=== PATIENT | male | born 1960 | race Two or more races ===

== ENCOUNTER 2024-07-19 05:26 | Day surgery (SDC) | payer OTHER ==
[2024-07-11 13:11] VITALS: BP 130/85
[~2024-07-19] VITALS: Ht 182.9 cm; Wt 77.6 kg
[~2024-07-19 05:26] MED LIST: CRESTOR; SYNTHROID75 MCG
[2024-07-19] MEDS ORDERED: DIBUCAINE 30 GM TUBE ONE (06:46)
[2024-07-19] MEDS ORDERED: POVIDONE-IODINE 118 ML BOTT TOP ONE (06:46)
[2024-07-19] MEDS ORDERED: BUPIVACAINE HCL/Mpf 0.5% 10ML VIAL ONE (06:46)
[2024-07-19] MEDS ORDERED: LIDOCAINE HCL 1%/EPINEPHRINE 20ML VIAL IJ ONE (06:46)
[2024-07-19] MEDS ORDERED: HEMOSTATIC MATRIX 1 KIT KIT TOP ONE (06:46)
[2024-07-19] MEDS ORDERED: CEFTRIAXONE SODIUM 2,000 MG VIAL ONE (06:46)
[2024-07-19] MEDS ORDERED: METRONIDAZOLE/SODIUM CHLORIDE 500 MG/100 ML PIGGYBACK IV ONE (06:47)
[2024-07-19] MEDS ORDERED: RECTICARE30 GM TOP (08:28)
[2024-07-19] MEDS ORDERED: TRAM1TAB98 PO (08:28)
== END 2024-07-19 13:40 | disposition home or self-care (01) ==
LOC: CIR.AMB 05:26
PROVIDERS: ATTEND Surgery
DX: D12.8 Benign neoplasm of rectum (principal); D37.5 Neoplasm of uncertain behavior of rectum; Z88.6 Allergy status to analgesic agent; Z91.013 Allergy to seafood